=== PATIENT | male | born 1990 | race Caucasian/White ===

== ENCOUNTER 2016-09-08 15:52 | Emergency (ER) | payer MEDICAID ==
[~2016-09-08] VITALS: Ht 175.3 cm; Wt 67.0 kg
[~2016-09-08 15:52] MED LIST: CREON24 PO; ESSE250T PO; GABA300C5 PO; PROT40TA PO; VITA100064 PO; ZANT150T2 PO
[2016-09-08 15:57] VITALS: BP 142/106; PULSE 79; RESP 18; TEMP 97.7; O2SAT 98
--- NOTE | 2016-09-08 16:26 | PD ---
HPI Chief Complaint: GI Complaint Time Seen by Provider: 16:17 Travel History International Travel<30 days: No Contact w/Intl Traveler<30days: No Traveled to known affect area: No History of Present Illness HPI This patient complains of nausea and vomiting. Duration 30 minutes. Severity is moderate. This is a flare of her chronic problem. He was fairly frequent visitor for nausea and vomiting spells. He's had extensive GI workup as noted in my last visit with him which was last month. He denies fever. No diarrhea. No alleviating factors. PFSH Past Medical History Arthritis: No Autoimmune Disease: No Anxiety: No Depression: No Cancer: No Cardiovascular Problems: No Cerebrovascular Accident: No Cystic Fibrosis: Yes Diminished Hearing: No Endocrine: No Gastrointestinal Disorders: Yes (nausea) GERD: No Genitourinary: No Hiatal Hernia: No Immune Disorder: No Musculoskeletal: No Neurologic: No Psychiatric: No Reproductive: No Respiratory: Yes (cystic fibrosis at 3 months old) Immunizations Current: Yes Migraines: No Seizures: No Ulcer: No Tetanus Vaccination: < 5 Years Influenza Vaccination: Yes Past Surgical History AICD: No Arteriovenous Shunt: No Insulin Pump: No Joint Replacement: No Other Surgery: Yes (Sinus) Social History Alcohol Use: No Tobacco Use: No Substance Use: No Allergies-Medications (Allergen,Severity, Reaction): Coded Allergies: No Known Allergies (Unverified , 09/08/16) Reported Meds & Prescriptions Reported Meds & Active Scripts Active Zantac (Ranitidine HCl) 150 Mg Tab 150 Mg PO BID Reported Protonix (Pantoprazole Sodium) 40 Mg Tab 40 Mg PO DAILY Magnesium 250 Mg Tab 1 Tab PO DAILY Gabapentin 300 Mg Cap 300 Mg PO BID Vitamin D (Cholecalciferol) 1,000 Unit Tab 1,000 Units PO DAILY Review of Systems General / Constitutional: No: Fever Eyes: No: Visual changes HENT: No: Headaches Cardiovascular: No: Chest Pain or Discomfort Respiratory: No: Shortness of Breath Gastrointestinal: Positive: Nausea, Vomiting, Abdominal Pain Genitourinary: No: Dysuria Musculoskeletal: No: Pain Skin: No Rash Neurologic: No: Weakness Psychiatric: No: Depression Endocrine: No: Polydipsia Hematologic/Lymphatic: No: Easy Bruising Physical Exam Narrative GENERAL: Well-nourished, well-developed patient with nausea and vomiting SKIN: Warm and dry. HEAD: Atraumatic. Normocephalic. EYES: Pupils equal and round. No scleral icterus. No injection or drainage. ENT: No nasal bleeding or discharge. Mucous membranes pink and moist. NECK: Trachea midline. No JVD. CARDIOVASCULAR: Regular rate and rhythm. No murmur appreciated. RESPIRATORY: No accessory muscle use. Clear to auscultation. Breath sounds equal bilaterally. GASTROINTESTINAL: Abdomen soft, non-tender, nondistended. Hepatic and splenic margins not palpable. MUSCULOSKELETAL: No obvious deformities. No clubbing. No cyanosis. No edema. NEUROLOGICAL: Awake and alert. No obvious cranial nerve deficits. Motor grossly within normal limits. Normal speech. PSYCHIATRIC: Appropriate mood and affect; insight and judgment normal. Data Data Last Documented VS Vital Signs Date Time Temp Pulse Resp B/P Pulse Ox O2 Delivery O2 Flow Rate FiO2 09/08/16 18:00 75 18 121/68 99 Room Air 09/08/16 15:57 97.7 Orders Complete Blood Count With Diff (09/08/16 16:22) Comprehensive Metabolic Panel (09/08/16 16:22) Lipase (09/08/16 16:22) Iv Access Insert/Monitor (09/08/16 16:22) NPO (09/08/16 16:22) Ondansetron Inj (Zofran Inj) (09/08/16 16:30) Sodium Chloride 0.9% Flush (Ns Flush) (09/08/16 16:30) Sodium Chlor 0.9% 1000 Ml Inj (Ns 1000 M (09/08/16 16:30) Promethazine Inj (Phenergan Inj) (09/08/16 16:30) Ondansetron Inj (Zofran Inj) (09/08/16 17:15) Lorazepam Inj (Ativan Inj) (09/08/16 17:15) Labs Laboratory Tests Test 09/08/16 16:15 White Blood Count 10.0 TH/MM3 Red Blood Count 5.22 MIL/MM3 Hemoglobin 15.1 GM/DL Hematocrit 45.2 % Mean Corpuscular Volume 86.6 FL Mean Corpuscular Hemoglobin 28.9 PG Mean Corpuscular Hemoglobin 33.4 % Concent Red Cell Distribution Width 12.3 % Platelet Count 333 TH/MM3 Mean Platelet Volume 8.3 FL Neutrophils (%) (Auto) 55.9 % Lymphocytes (%) (Auto) 30.7 % Monocytes (%) (Auto) 6.4 % Eosinophils (%) (Auto) 5.3 % Basophils (%) (Auto) 1.7 % Neutrophils # (Auto) 5.6 TH/MM3 Lymphocytes # (Auto) 3.1 TH/MM3 Monocytes # (Auto) 0.6 TH/MM3 Eosinophils # (Auto) 0.5 TH/MM3 Basophils # (Auto) 0.2 TH/MM3 CBC Comment DIFF FINAL Differential Comment Sodium Level 141 MEQ/L Potassium Level 4.1 MEQ/L Chloride Level 105 MEQ/L Carbon Dioxide Level 28.3 MEQ/L Anion Gap 8 MEQ/L Blood Urea Nitrogen 10 MG/DL Creatinine 1.10 MG/DL Estimat Glomerular Filtration 81 ML/MIN Rate Random Glucose 91 MG/DL Calcium Level 9.0 MG/DL Total Bilirubin 0.2 MG/DL Aspartate Amino Transf 25 U/L (AST/SGOT) Alanine Aminotransferase 28 U/L (ALT/SGPT) Alkaline Phosphatase 76 U/L Total Protein 8.7 GM/DL Albumin 4.4 GM/DL Lipase 39 U/L [facility] Medical Decision Making Medical Screen Exam Complete: Yes Emergency Medical Condition: Yes Medical Record Reviewed: Yes Differential Diagnosis Cyclical vomiting, narcotic withdrawal, ileus Narrative Course I have reviewed the patient's electronic medical record. Reviewed my visit with him 07/27/2016. Had a CT couple weeks before that which was normal IV placed I gave him IV Zofran and IM Phenergan and 1 L normal saline IV CBC is normal Metabolic profile is normal Lipase is normal LFTs are normal Patient's abdomen is soft and benign and nontender. Patient reported still feeling nauseous. I gave him a second dose of Zofran and a dose of 1 mg IV Ativan. On reassessment I think he is improved. He is not having any vomiting since he has been here. He has Zofran at home. He says Phenergan doesn't help. He wants to try some Reglan and I have written a prescription for that He should follow-up with his GI physician Diagnosis Primary Impression: Nausea and vomiting Qualified Code: G43.A0 - Non-intractable cyclical vomiting with nausea Additional Instructions: The patient was advised to follow up with their physician and return if they worsen. I have recommended clear liquids for 24 hours, then gradually advance as tolerated. The patient was warned about potential sedation for the medications they will receive on prescription. Med/Other Pt SpecificInfo: Prescription(s) given Scripts Metoclopramide (Reglan)10 Mg Tab10 Mg PO TIDAC #30 TAB Ref 0 Prov:Bradley Mancuso MD 09/08/16 Disposition: 01 DISCHARGE HOME Condition: Stable Bradley Mancuso MD Sep 08, 2016 16:26
[2016-09-08] MEDS ORDERED: SODIUM CHLOR 0.9% 1000 ML INJ 1,000 ML IV ONE (16:30)
[2016-09-08] MEDS ORDERED: SODIUM CHLORIDE 0.9% FLUSH 5 ML FLUSH IVF PRN (16:30)
[2016-09-08] MEDS ORDERED: PROMETHAZINE INJ 25 MG/ML VIAL IM ONE (16:30)
[2016-09-08] MEDS ORDERED: ONDANSETRON HCL 4 MG/2 ML VIAL IVP ONE ×2 (16:30→17:15)
[2016-09-08 16:38] LABS: AUTOMATED NEUTROPHIL # 5.6 TH/MM3 (1.8-7.7); BASOPHIL # 0.2 TH/MM3 (0-0.2); BASOPHIL % 1.7 % (0.0-2.0); EOSINOPHIL # 0.5 TH/MM3 (0-0.4); EOSINOPHIL % 5.3 % (0.0-4.0); HEMATOCRIT 45.2 % (39.0-51.0); HEMO FLAGS DIFF FINAL; LYMPH % 30.7 % (9.0-44.0); LYMPHOCYTE # 3.1 TH/MM3 (1.0-4.8); MEAN CELL VOLUME 86.6 FL (80.0-100.0); MEAN CORPUSCULAR HEMOGLOBIN 28.9 PG (27.0-34.0); MEAN CORPUSCULAR HGB CONC 33.4 % (32.0-36.0); MONO % 6.4 % (0.0-8.0); NEUT % 55.9 % (16.0-70.0); PLATELET COUNT 333 TH/MM3 (150-450); RED BLOOD COUNT 5.22 MIL/MM3 (4.50-5.90); RED CELL DISTRIBUTION WIDTH 12.3 % (11.6-17.2)
[2016-09-08 16:46] LABS: CHLORIDE 105 MEQ/L (98-107); POTASSIUM 4.1 MEQ/L (3.5-5.1); SODIUM (NA) 141 MEQ/L (136-145)
[2016-09-08 16:50] LABS: ANION GAP 8 MEQ/L (5-15); BICARBONATE 28.3 MEQ/L (21.0-32.0); BLOOD UREA NITROGEN 10 MG/DL (7-18)
[2016-09-08 16:53] LABS: ALT (GPT) 28 U/L (12-78); AST (GOT) 25 U/L (15-37); GLOMERULAR FILTRATION RATE 81 ML/MIN (>89)
[2016-09-08 16:55] LABS: TOTAL BILIRUBIN ADULT 0.2 MG/DL (0.2-1.0)
[2016-09-08 16:56] LABS: ALKALINE PHOSPHATASE 76 U/L (45-117)
[2016-09-08] MEDS ORDERED: LORazepam 2 MG/ML VIAL IV PUSH ONE (17:15)
[2016-09-08 18:00] VITALS: BP 121/68; PULSE 75; RESP 18; O2SAT 99
[2016-09-08] MEDS ORDERED: REGL10TA5 PO (18:05)
== END 2016-09-08 18:30 | disposition home or self-care (01) ==
LOC: PHED 15:52
DX: G43.A0 Cyclical vomiting, in migraine, not intractable (principal)
CPT/HCPCS: 80053; 83690; 85025; 96361; 96372; 96374; 96375; 96376; 99284; J2060; J2405; J2550; J7030

== ENCOUNTER 2017-03-26 19:26 | Emergency (ER) | payer MEDICAID ==
[~2017-03-26 19:26] MED LIST changes: +ALBU.5I NEB; +AQUACHW; -CREON24 PO; +DIAZ2TAB PO; +FAMO20TA2 PO; +FLUT50SP EACH NARE; +GABA100C4 PO; +LANS30CA PO; +MAGN400T2 PO; +METO5TAB PO; +ONDA1TAB17 PO; +OXYC-392 PO; +REGL10TA5 PO; +VENTAER INH; +ZENP1000 PO
[2017-03-26 19:32] VITALS: BP 135/80; PULSE 90; RESP 22; TEMP 97.7; O2SAT 100
--- NOTE | 2017-03-26 20:43 | PD ---
HPI Chief Complaint: GI Complaint Time Seen by Provider: 20:31 Travel History International Travel<30 days: No Contact w/Intl Traveler<30days: No Traveled to known affect area: No History of Present Illness HPI The patient is a 26-year-old male that has a history of pancreatitis and cystic fibrosis who comes in approximately on a monthly basis for abdominal pain, nausea and vomiting. He states he has nausea and vomiting without diarrhea and he is unable to eat or drink anything today. He complains of a midline epigastric pain and slightly to the left of midline epigastrium of 8/10. He states he wants Dilaudid. He states not to even bother with morphine, he needs Dilaudid. He is followed by a cystic fibrosis group in [place]. 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 He does not have a local physician. He denies any fever. He states he is vomiting up blood. He states that most of the vomitus is blood. There is no associated diarrhea. PFSH Past Medical History Asthma: No Anxiety: No Depression: No Cancer: No Cardiovascular Problems: No COPD: No Cystic Fibrosis: Yes Diabetes: No Diminished Hearing: No Endocrine: No Gastrointestinal Disorders: Yes GERD: Yes Genitourinary: No Immune Disorder: No Implanted Vascular Access Dvce: No Musculoskeletal: No Neurologic: No Psychiatric: No Reproductive: Yes (yes due to Cystic Fibrosis) Respiratory: Yes (Cystic fibrosis) Pancreatitis: Yes Seizures: No Sleep Apnea: No Ulcer: No Past Surgical History Abdominal Surgery: No Cardiac Surgery: No Ear Surgery: No Endocrine Surgery: No Eye Surgery: No Genitourinary Surgery: No Gynecologic Surgery: No Neurologic Surgery: Yes (CILIAC NERVE BLOCK) Oral Surgery: No Thoracic Surgery: No Other Surgery: No Social History Alcohol Use: No Tobacco Use: No Substance Use: No Allergies-Medications (Allergen,Severity, Reaction): Coded Allergies: No Known Allergies (Unverified , 03/26/17) Reported Meds & Prescriptions Reported Meds & Active Scripts Active Zofran Odt (Ondansetron Odt) 8 Mg Tab 8 Mg SL Q8HR Reported Lansoprazole 30 Mg Capdr 30 Mg PO DAILY Ondansetron (Ondansetron HCl) 8 Mg Tab 8 Mg PO TID PRN Metoclopramide (Metoclopramide HCl) 5 Mg Tab 5 Mg PO QID Albuterol Neb (Albuterol Sulfate) 2.5 Mg/0.5 Ml Neb 2.5 Mg NEB Q6HR NEB PRN Note: The Albuterol Sulfate Inhalation Solution is concentrated and must be diluted. Read complete instructions carefully before using. Oxycodone (Oxycodone HCl) 5 Mg Tab 5 Mg PO Q6H PRN Aquadeks (Multiple Vitamins W/ Minerals) 1 Chw Chw Fluticasone Nasal Adrian 50 Mcg/Act Naspr 50 Mcg EACH NARE BID 50 mcg/spray Famotidine 20 Mg Tab 20 Mg PO BID Magnesium Oxide 400 Mg Tab 400 Mg PO DAILY Diazepam 2 Mg Tab 2 Mg PO BID PRN Gabapentin 100 Mg Cap 300 Mg PO BID Vitamin D3 (Cholecalciferol) 1,000 Unit Tab 1,000 Units PO DAILY Ventolin Hfa 18 GM Inh (Albuterol Sulfate) 90 Mcg/Act Aer 1 Puff INH Q4H PRN Zenpep (Pancrelipase) 10,000-34,000-55,000 Units Cap 1 Cap PO TIDPC Review of Systems Except as stated in HPI: all other systems reviewed are Neg Physical Exam Narrative GENERAL: The patient is alert, moderately dehydrated, oriented 3 in moderate apparent distress with his nausea and midline by gastric pain. His vital signs are normal. SKIN: Focused skin assessment warm/dry. HEAD: Atraumatic. Normocephalic. EYES: Pupils equal and round. No scleral icterus. No injection or drainage. ENT: No nasal bleeding or discharge. Mucous membranes pink and moist. NECK: Trachea midline. No JVD. CARDIOVASCULAR: Regular rate and rhythm. No murmur appreciated. RESPIRATORY: No accessory muscle use. Clear to auscultation. Breath sounds equal bilaterally. GASTROINTESTINAL: Abdomen soft, non-tender, nondistended. Hepatic and splenic margins not palpable. MUSCULOSKELETAL: No obvious deformities. No clubbing. No cyanosis. No edema. NEUROLOGICAL: Awake and alert. No obvious cranial nerve deficits. Motor grossly within normal limits. Normal speech. PSYCHIATRIC: Appropriate mood and affect; insight and judgment normal. Data Data Last Documented VS Vital Signs Date Time Temp Pulse Resp B/P Pulse Ox O2 Delivery O2 Flow Rate FiO2 03/26/17 21:36 87 18 116/87 98 Room Air 03/26/17 19:32 97.7 Orders Complete Blood Count With Diff (03/26/17 20:39) Comprehensive Metabolic Panel (03/26/17 20:39) Lipase (03/26/17 20:39) Urinalysis - C+S If Indicated (03/26/17 20:39) Ct Abd/Pel W Iv Contrast(Rout) (03/26/17 20:39) Iv Access Insert/Monitor (03/26/17 20:39) Ecg Monitoring (03/26/17 20:39) Oximetry (03/26/17 20:39) Sodium Chloride 0.9% Flush (Ns Flush) (03/26/17 20:45) Ondansetron Inj (Zofran Inj) (03/26/17 20:45) Sodium Chlor 0.9% 1000 Ml Inj (Ns 1000 M (03/26/17 20:45) Hydromorphone Pf Inj (Dilaudid Pf Inj) (03/26/17 20:45) Pantoprazole Inj (Protonix Inj) (03/26/17 20:45) Famotidine Inj (Pepcid Inj) (03/26/17 20:45) Iohexol 350 Inj (Omnipaque 350 Inj) (03/26/17 21:27) Ondansetron Inj (Zofran Inj) (03/26/17 22:00) Labs Laboratory Tests Test 03/26/17 21:00 White Blood Count 13.1 TH/MM3 Red Blood Count 4.77 MIL/MM3 Hemoglobin 14.1 GM/DL Hematocrit 41.4 % Mean Corpuscular Volume 86.8 FL Mean Corpuscular Hemoglobin 29.6 PG Mean Corpuscular Hemoglobin 34.1 % Concent Red Cell Distribution Width 11.8 % Platelet Count 256 TH/MM3 Mean Platelet Volume 8.1 FL Neutrophils (%) (Auto) 91.0 % Lymphocytes (%) (Auto) 5.8 % Monocytes (%) (Auto) 2.5 % Eosinophils (%) (Auto) 0.1 % Basophils (%) (Auto) 0.6 % Neutrophils # (Auto) 11.9 TH/MM3 Lymphocytes # (Auto) 0.8 TH/MM3 Monocytes # (Auto) 0.3 TH/MM3 Eosinophils # (Auto) 0.0 TH/MM3 Basophils # (Auto) 0.1 TH/MM3 CBC Comment DIFF FINAL Differential Comment Sodium Level 140 MEQ/L Potassium Level 4.1 MEQ/L Chloride Level 105 MEQ/L Carbon Dioxide Level 25.4 MEQ/L Anion Gap 10 MEQ/L Blood Urea Nitrogen 14 MG/DL Creatinine 0.89 MG/DL Estimat Glomerular Filtration 103 ML/MIN Rate Random Glucose 160 MG/DL Calcium Level 9.1 MG/DL Total Bilirubin 0.3 MG/DL Aspartate Amino Transf 16 U/L (AST/SGOT) Alanine Aminotransferase 23 U/L (ALT/SGPT) Alkaline Phosphatase 72 U/L Total Protein 8.2 GM/DL Albumin 4.5 GM/DL Lipase 36 U/L [facility] Medical Decision Making Medical Screen Exam Complete: Yes Emergency Medical Condition: Yes Medical Record Reviewed: Yes Interpretation(s) The complete metabolic profile shows a glucose of 160 but is otherwise normal. The lipase is normal. The CBC shows a white count of 13,100 with 91% neutrophils but is otherwise normal. The CT of the abdomen/pelvis with IV contrast shows diffuse fatty changes of the pancreas and mild diffuse fatty infiltration of the liver and status post cholecystectomy. No acute findings are noted. Differential Diagnosis Pancreatitis, dehydration, electrolyte disorder, hypo-/hyperglycemia, renal insufficiency, gastritis, intractable nausea/vomiting, intractable abdominal pain Narrative Course The patient vomited several times here in the emergency department but there was no blood in the vomitus. It is now 10:32 PM and the patient is successfully drinking Gatorade. He was offered admission but states he wants to try it at home with the 8 mg Zofran ODT. He will follow-up with his cystic fibrosis group next week. Diagnosis Primary Impression: Gastritis Additional Impressions: Cystic fibrosis Dehydration, mild Additional Instructions: You came in appearing dehydrated. You may need to take the Zofran regularly, 1 every 8 hours to prevent nausea and vomiting. Don't wait till the nausea starts. Follow-up next week with your cystic fibrosis group. Med/Other Pt SpecificInfo: Prescription(s) given Scripts Ondansetron Odt (Zofran Odt)8 Mg Tab8 Mg SL Q8HR #30 TAB Ref 0 Prov:Felix Almanzar MD 03/26/17 Disposition: 01 DISCHARGE HOME Condition: Stable Felix Almanzar MD Mar 26, 2017 20:43
[2017-03-26] MEDS ORDERED: HYDROmorphone HCL PF 2 MG/ML VIAL IVS ONE (20:45)
[2017-03-26] MEDS ORDERED: FAMOTIDINE 20 MG/2 ML VIAL IV PUSH ONE (20:45)
[2017-03-26] MEDS ORDERED: SODIUM CHLORIDE 0.9% FLUSH 10 ML FLUSH IV FLUSH PRN (20:45)
[2017-03-26] MEDS ORDERED: ONDANSETRON HCL 4 MG/2 ML VIAL IV ONE ×2 (20:45→22:00)
[2017-03-26] MEDS ORDERED: PANTOPRAZOLE SODIUM 40 MG VIAL IVP ONE (20:45)
[2017-03-26 20:46] VITALS: O2SAT 99
[2017-03-26] MEDS: SODIUM CHLOR 0.9% 1000 ML INJ 1,000 ML IV SCH ×2 (21:10→21:15)
[2017-03-26 21:27] LABS: AUTOMATED NEUTROPHIL # 11.9 TH/MM3 (1.8-7.7); BASOPHIL # 0.1 TH/MM3 (0-0.2); BASOPHIL % 0.6 % (0.0-2.0); EOSINOPHIL % 0.1 % (0.0-4.0); HEMATOCRIT 41.4 % (39.0-51.0); HEMO FLAGS DIFF FINAL; LYMPH % 5.8 % (9.0-44.0); LYMPHOCYTE # 0.8 TH/MM3 (1.0-4.8); MEAN CELL VOLUME 86.8 FL (80.0-100.0); MEAN CORPUSCULAR HEMOGLOBIN 29.6 PG (27.0-34.0); MEAN CORPUSCULAR HGB CONC 34.1 % (32.0-36.0); MONO % 2.5 % (0.0-8.0); PLATELET COUNT 256 TH/MM3 (150-450); RED BLOOD COUNT 4.77 MIL/MM3 (4.50-5.90); RED CELL DISTRIBUTION WIDTH 11.8 % (11.6-17.2); WHITE BLOOD COUNT 13.1 TH/MM3 (4.0-11.0)
[2017-03-26] MEDS ORDERED: IOHEXOL 350 MG/ML 10 ML VIAL (for RAD DIAG) IV ONE (21:27)
[2017-03-26 21:34] LABS: CHLORIDE 105 MEQ/L (98-107); POTASSIUM 4.1 MEQ/L (3.5-5.1); SODIUM (NA) 140 MEQ/L (136-145)
[2017-03-26 21:36] VITALS: BP 116/87; PULSE 87; RESP 18; O2SAT 98
[2017-03-26 21:41] LABS: ANION GAP 10 MEQ/L (5-15); BICARBONATE 25.4 MEQ/L (21.0-32.0); BLOOD UREA NITROGEN 14 MG/DL (7-18)
[2017-03-26 21:43] LABS: ALT (GPT) 23 U/L (12-78); AST (GOT) 16 U/L (15-37); GLOMERULAR FILTRATION RATE 103 ML/MIN (>89)
--- NOTE | 2017-03-26 21:43 | RADRPT ---
EXAM DATE/TIME: 03/26/2017 21:24 [facility] COMPARISON: CT ABDOMEN & PELVIS W CONTRAST, January 17, 2017, 9:57. INDICATIONS : Abdominal pain. history of cystic fibrosis and pancreatitis. Nausea , vomiting with hemoptysis since 3 a.m. IV CONTRAST: 96 cc Omnipaque 350 (iohexol) IV ORAL CONTRAST: No oral contrast ingested. RADIATION DOSE: 4.88 CTDIvol (mGy) MEDICAL HISTORY : Pancreatitis. Gastroesophageal reflux disease. cystic fibrosis SURGICAL HISTORY : Cholecystectomy. Ciliac nerve block ENCOUNTER: Initial ACUITY: 1 day PAIN SCALE: 10/10 LOCATION: medial abdomen TECHNIQUE: Volumetric scanning of the abdomen and pelvis was performed. Using automated exposure control and ad justment of the mA and/or kV according to patient size, radiation dose was kept as low as reasonably achievable to obtain optimal diagnostic quality images. DICOM format image data is available electro nically for review and comparison. FINDINGS: LOWER LUNGS: Atelectasis in the lingula. LIVER: Mild diffuse fatty infiltration of the liver. No focal mass. Cholecystectomy clips. SPLEEN: Normal size without lesion. PANCREAS: Diffuse fatty change of the pancreas. No inflammatory changes seen. KIDNEYS: Normal in size and shape. There is no mass, stone or hydronephrosis. ADRENAL GLANDS: Within normal limits. VASCULAR: There is no aortic aneurysm. BOWEL/MESENTERY: No evidence of bowel dilatation. No free air or free fluid. Appendix within normal limits. ABDOMINAL WALL: Within normal limits. RETROPERITONEUM: There is no lymphadenopathy. BLADDER: No wall thickening or mass. REPRODUCTIVE: Within normal limits. INGUINAL: There is no lymphadenopathy or hernia. MUSCULOSKELETAL: Within normal limits for patient age. CONCLUSION: Diffuse fatty change of the pancreas. Mild diffuse fatty infiltration of the liver. Status post elia cystectomy. Blaine Collier MD on March 26, 2017 at 21:38 Board Certified Radiologist. This report was verified electronically.
[2017-03-26 21:45] LABS: TOTAL BILIRUBIN ADULT 0.3 MG/DL (0.2-1.0)
[2017-03-26 21:46] LABS: ALKALINE PHOSPHATASE 72 U/L (45-117)
[2017-03-26] MEDS ORDERED: ZOFR8TAB4 SL (22:25)
[2017-03-26 22:52] VITALS: BP 110/65
== END 2017-03-26 22:57 | disposition home or self-care (01) ==
LOC: PHED 19:26 → MERGE 19:26 → PHED 22:57
DX: K29.70 Gastritis, unspecified, without bleeding (principal); E84.9 Cystic fibrosis, unspecified; E86.0 Dehydration
CPT/HCPCS: 74177; 80053; 83690; 85025; 96374; 96375; 96376; 99285; C9113; J1170; J2405; J7030; Q9967

== ENCOUNTER 2017-05-17 21:54 | Emergency (ER) | payer MEDICAID ==
[~2017-05-17] VITALS: Ht 175.3 cm; Wt 64.0 kg
[~2017-05-17 21:54] MED LIST changes: +ZOFR8TAB4 SL
[2017-05-17 22:22] VITALS: BP 142/85; PULSE 105; RESP 18; TEMP 98.5; O2SAT 98
[2017-05-18] MEDS ORDERED: CREON24 PO (01:16)
[2017-05-18] MEDS ORDERED: SODIUM CHLOR 0.9% 1000 ML INJ 1,000 ML IV SCH (01:20)
--- NOTE | 2017-05-18 01:27 | PD ---
HPI Chief Complaint: Abdominal Pain Time Seen by Provider: 01:20 Travel History International Travel<30 days: No Contact w/Intl Traveler<30days: No Traveled to known affect area: No History of Present Illness HPI 26-year-old male presents to the emergency department for complaint of 24 hours of nausea vomiting abdominal pain with history of cystic fibrosis and pancreatitis. Patient is not able to take his medications due to multiple episodes of vomiting. Patient denies history of bowel obstruction the past. Patient has had no fever or chills. Patient denies hematemesis coffee-ground emesis melena hematochezia. Patient rates pain as 8/10 in intensity. Patient states that he has episodes like this he typically has to receive Zofran and Dilaudid. Patient is able to identify exacerbating or alleviating factors. PFSH Past Medical History Arthritis: No Asthma: No Autoimmune Disease: No Anxiety: No Depression: No Cancer: No Cardiovascular Problems: No COPD: No Cerebrovascular Accident: No Cystic Fibrosis: Yes Diabetes: Yes Patient Takes Glucophage: No Diminished Hearing: No Endocrine: No Gastrointestinal Disorders: Yes GERD: Yes Genitourinary: No Hiatal Hernia: No Immune Disorder: No Implanted Vascular Access Dvce: No Musculoskeletal: No Neurologic: No Psychiatric: No Reproductive: Yes (yes due to Cystic Fibrosis) Respiratory: Yes (Cystic Fibrosis) Immunizations Current: Yes Migraines: No Pancreatitis: Yes Seizures: No Sleep Apnea: No Ulcer: No Influenza Vaccination: Yes Past Surgical History Abdominal Surgery: No AICD: No Arteriovenous Shunt: No Cardiac Surgery: No Cholecystectomy: Yes Ear Surgery: No Endocrine Surgery: No Eye Surgery: No Genitourinary Surgery: No Gynecologic Surgery: No Insulin Pump: No Joint Replacement: No Neurologic Surgery: Yes (CILIAC NERVE BLOCK) Oral Surgery: No Thoracic Surgery: No Other Surgery: No Social History Alcohol Use: No Tobacco Use: No Substance Use: No Allergies-Medications (Allergen,Severity, Reaction): Coded Allergies: No Known Allergies (Unverified , 05/17/17) Reported Meds & Prescriptions Reported Meds & Active Scripts Active Zofran Odt (Ondansetron Odt) 8 Mg Tab 8 Mg SL Q8HR Zantac (Ranitidine HCl) 150 Mg Tab 150 Mg PO BID Reported Fentanyl Patch 72 HR (Fentanyl) 12 Mcg/Hr Patch 1 Patch T-DERMAL Q72H Remove old patch when new one placed. Creon (Amylase/Lipase/Protease) 24,000-76,000-120,000 Units Cap 1 Cap PO TIDPC Lansoprazole 30 Mg Capdr 30 Mg PO DAILY Albuterol Neb (Albuterol Sulfate) 2.5 Mg/0.5 Ml Neb 2.5 Mg NEB Q6HR NEB PRN Note: The Albuterol Sulfate Inhalation Solution is concentrated and must be diluted. Read complete instructions carefully before using. Oxycodone (Oxycodone HCl) 5 Mg Tab 5 Mg PO Q6H PRN Aquadeks (Multiple Vitamins W/ Minerals) 1 Chw Chw Fluticasone Nasal [place] 50 Mcg/Act Naspr 50 Mcg EACH NARE BID 50 mcg/spray Famotidine 20 Mg Tab 20 Mg PO BID Diazepam 2 Mg Tab 2 Mg PO BID PRN Gabapentin 100 Mg Cap 300 Mg PO BID Ventolin Hfa 18 GM Inh (Albuterol Sulfate) 90 Mcg/Act Aer 1 Puff INH Q4H PRN Protonix (Pantoprazole Sodium) 40 Mg Tab 40 Mg PO DAILY Magnesium 250 Mg Tab 1 Tab PO DAILY Gabapentin 300 Mg Cap 300 Mg PO TID NEB Vitamin D3 (Cholecalciferol) 1,000 Unit Tab 1,000 Units PO DAILY Review of Systems Except as stated in HPI: all other systems reviewed are Neg General / Constitutional: No: Fever, Chills HENT: No: Congestion Cardiovascular: No: Chest Pain or Discomfort Respiratory: No: Shortness of Breath Gastrointestinal: Positive: Nausea, Vomiting, Abdominal Pain (with vomiting) Genitourinary: Positive: Decreased Urinary Output, No: Dysuria Musculoskeletal: No: Myalgias, Arthralgias Skin: No Rash Neurologic: No: Weakness Psychiatric: Positive: Anxiety Hematologic/Lymphatic: No: Lymph Node Enlargement Physical Exam Narrative GENERAL: Well-developed well-nourished male in no distress no respiratory distress SKIN: Warm and dry. HEAD: Normocephalic. EYES: No scleral icterus. No injection or drainage. NECK: Supple, trachea midline. No JVD or lymphadenopathy. CARDIOVASCULAR: Regular rate and rhythm without murmurs, gallops, or rubs. RESPIRATORY: Breath sounds equal bilaterally. No accessory muscle use. GASTROINTESTINAL: Abdomen soft, tender without guarding or rebound, nondistended. MUSCULOSKELETAL: No cyanosis, or edema. BACK: Nontender without obvious deformity. No CVA tenderness. Data Data Last Documented VS Vital Signs Date Time Temp Pulse Resp B/P (MAP) Pulse Ox O2 Delivery O2 Flow Rate FiO2 05/18/17 03:59 98.5 86 16 119/59 (79) 95 Room Air Orders Orders Complete Blood Count With Diff (05/18/17 01:20) Comprehensive Metabolic Panel (05/18/17 01:20) Lipase (05/18/17 01:20) Lactic Acid (05/18/17 01:20) Prothrombin Time / Inr (Pt) (05/18/17 01:20) Act Partial Throm Time (Ptt) (05/18/17 01:20) Urinalysis - C+S If Indicated (05/18/17 01:20) Iv Access Insert/Monitor (05/18/17 01:20) Ecg Monitoring (05/18/17 01:20) Oximetry (05/18/17 01:20) Ondansetron Inj (Zofran Inj) (05/18/17 01:30) Sodium Chlor 0.9% 1000 Ml Inj (Ns 1000 M (05/18/17 01:20) Sodium Chloride 0.9% Flush (Ns Flush) (05/18/17 01:30) Electrocardiogram (05/18/17 01:20) Chest, Single Ap (05/18/17 01:20) Hydromorphone Pf Inj (Dilaudid Pf Inj) (05/18/17 01:30) Sodium Chlor 0.9% 1000 Ml Inj (Ns 1000 M (05/18/17 01:30) Magnesium (Mg) (05/18/17 01:20) Sodium Chlorid 0.9% 500 Ml Inj (Ns 500 M (05/18/17 02:15) Ondansetron Inj (Zofran Inj) (05/18/17 02:15) Hydromorphone Pf Inj (Dilaudid Pf Inj) (05/18/17 02:30) Sucralfate Liq (Carafate Liq) (05/18/17 02:30) Abdomen, Flat & Upright (05/18/17 ) Lactic Acid (05/18/17 04:00) Labs Laboratory Tests Test 05/18/17 01:18 05/18/17 01:54 05/18/17 02:55 05/18/17 03:55 White Blood Count 16.9 TH/MM3 Red Blood Count 5.14 MIL/MM3 Hemoglobin 14.9 GM/DL Hematocrit 43.7 % Mean Corpuscular Volume 85.1 FL Mean Corpuscular Hemoglobin 29.1 PG Mean Corpuscular Hemoglobin Concent 34.2 % Red Cell Distribution Width 12.3 % Platelet Count 325 TH/MM3 Mean Platelet Volume 7.7 FL Neutrophils (%) (Auto) 91.7 % Lymphocytes (%) (Auto) 6.1 % Monocytes (%) (Auto) 0.8 % Eosinophils (%) (Auto) 0.1 % Basophils (%) (Auto) 1.3 % Neutrophils # (Auto) 15.6 TH/MM3 Lymphocytes # (Auto) 1.0 TH/MM3 Monocytes # (Auto) 0.1 TH/MM3 Eosinophils # (Auto) 0.0 TH/MM3 Basophils # (Auto) 0.2 TH/MM3 CBC Comment DIFF FINAL Differential Comment Prothrombin Time 10.7 SEC Prothromb Time International Ratio 1.0 RATIO Activated Partial Thromboplast Time 26.8 SEC Blood Urea Nitrogen 11 MG/DL Creatinine 0.86 MG/DL Random Glucose 120 MG/DL Total Protein 9.1 GM/DL Albumin 4.7 GM/DL Calcium Level 9.6 MG/DL Magnesium Level 2.2 MG/DL Alkaline Phosphatase 88 U/L Aspartate Amino Transf (AST/SGOT) 22 U/L Alanine Aminotransferase (ALT/SGPT) 31 U/L Total Bilirubin 0.2 MG/DL Sodium Level 134 MEQ/L Potassium Level 3.6 MEQ/L Chloride Level 98 MEQ/L Carbon Dioxide Level 26.1 MEQ/L Anion Gap 10 MEQ/L Estimat Glomerular Filtration Rate 107 ML/MIN Lipase 42 U/L Lactic Acid Level 2.6 mmol/L 1.7 mmol/L Urine Color YELLOW Urine Turbidity MOD Urine pH 5.5 Urine Specific [place] 1.022 Urine Protein NEG mg/dL Urine Glucose (UA) NEG mg/dL Urine Ketones NEG mg/dL Urine Occult Blood NEG Urine Nitrite NEG Urine Bilirubin NEG Urine Leukocyte Esterase NEG Urine Squamous Epithelial Cells 0-5 /hpf Urine Amorphous Sediment LARGE Urine Mucus MOD /lpf Microscopic Urinalysis Comment CULT NOT INDICATED MDM Medical Decision Making Medical Screen Exam Complete: Yes Emergency Medical Condition: Yes Medical Record Reviewed: Yes Interpretation(s) EKG: Normal sinus rhythm rate [address] elevation or injury pattern change noted CBC & BMP Diagram 05/18/17 01:18 Total Protein 9.1 H, Albumin 4.7, Calcium Level 9.6, Magnesium Level 2.2, Alkaline Phosphatase 88, Aspartate Amino Transf (AST/SGOT) 22, Alanine Aminotransferase (ALT/SGPT) 31, Total Bilirubin 0.2 Vital Signs Date Time Temp Pulse Resp B/P (MAP) Pulse Ox O2 Delivery O2 Flow Rate FiO2 05/18/17 03:59 98.5 86 16 119/59 (79) 95 Room Air 05/18/17 02:56 86 16 131/73 (92) 96 Room Air 05/17/17 22:22 98.5 105 18 142/85 (104) 98 lactic acid: 2.6, elevated; post hydration 1.7, wnl ua: wnl coags: wnl Differential Diagnosis Gastritis pancreatitis bowel obstruction narcotic/opiate withdrawal Narrative Course 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 At 4:30 AM repeat lactic acid is in normal range and patient is ambulatory to the bathroom smiling and indicating that he is markedly improved and ready to be discharged to home Patient presents with chronic recurrent pancreatitis gastritis with episodes of dehydration and vomiting and nausea that typically responds to fluid hydration anti-medic and narcotic pain medicine and appears to again have had an recurrent episode of same with marked improvement with fluid pain management and antiemetic therapy. Patient is stable for outpatient management and follow- up with his managing physician. Patient will be provided with prescription for Phenergan and Carafate. Diagnosis Primary Impression: Gastritis Additional Impressions: Nausea and vomiting Dehydration Referrals: Primary Care Physician call for appointment Patient Instructions: Narcotic given in the ED, General Instructions Additional Instructions: Increase fluid hydration Follow-up with your primary managing physician Continue current medications as presently prescribed May use Carafate as needed for gastritis/inflammation May use Phenergan as prescribed as needed for breakthrough nausea and/or vomiting Take acetaminophen as needed for fever 100.4F or greater Return to the emergency department for any concerns or change in condition Med/Other Pt SpecificInfo: Prescription(s) given Scripts Promethazine (Phenergan) 25 Mg Tablet 25 MG PO Q6H Y for NAUSEA OR VOMITING, #7 TAB 0 Refills Prov: Ivanna Lucas MD 05/18/17 Sucralfate Liq (Carafate Liq) 1 Gm/10 Ml Susp 1 GM PO QID for Duodenal ulcer for 7 Days, #1200 ML 0 Refills on empty stomach Prov: Ivanna Lucas MD 05/18/17 Disposition: 01 DISCHARGE HOME Condition: Stable Ivanna Lucas MD May 18, 2017 01:27
[2017-05-18] MEDS ORDERED: SODIUM CHLORIDE 0.9% FLUSH 10 ML FLUSH IV FLUSH PRN (01:30)
[2017-05-18] MEDS ORDERED: HYDROmorphone HCL PF 1 MG/ML VIAL IV PUSH ONE ×2 (01:30→02:30)
[2017-05-18] MEDS ORDERED: SODIUM CHLOR 0.9% 1000 ML INJ 1,000 ML IV ONE (01:30)
[2017-05-18] MEDS ORDERED: ONDANSETRON HCL 4 MG/2 ML VIAL IVP ONE (01:30)
[2017-05-18 01:43] LABS: AUTOMATED NEUTROPHIL # 15.6 TH/MM3 (1.8-7.7); BASOPHIL # 0.2 TH/MM3 (0-0.2); BASOPHIL % 1.3 % (0.0-2.0); EOSINOPHIL % 0.1 % (0.0-4.0); HEMATOCRIT 43.7 % (39.0-51.0); LYMPH % 6.1 % (9.0-44.0); MEAN CELL VOLUME 85.1 FL (80.0-100.0); MEAN CORPUSCULAR HEMOGLOBIN 29.1 PG (27.0-34.0); MEAN CORPUSCULAR HGB CONC 34.2 % (32.0-36.0); MONO % 0.8 % (0.0-8.0); NEUT % 91.7 % (16.0-70.0); PLATELET COUNT 325 TH/MM3 (150-450); RED BLOOD COUNT 5.14 MIL/MM3 (4.50-5.90); RED CELL DISTRIBUTION WIDTH 12.3 % (11.6-17.2); WHITE BLOOD COUNT 16.9 TH/MM3 (4.0-11.0)
[2017-05-18 01:44] LABS: HEMO FLAGS DIFF FINAL
--- NOTE | 2017-05-18 01:45 | RADRPT ---
EXAM DATE/TIME: 05/18/2017 01:23 [facility] COMPARISON: CHEST SINGLE AP, January 17, 2017, 8:58. INDICATIONS : Chest pain and nausea. MEDICAL HISTORY : Pancreatitis. Gastroesophageal reflux disease. cystic fibrosis SURGICAL HISTORY : Cholecystectomy. Ciliac nerve block ENCOUNTER: Initial ACUITY: 1 day PAIN SCORE: 6/10 LOCATION: Bilateral chest FINDINGS: No infiltrate, effusion or pneumothorax demonstrated. Slight upper lobe predominant bronchiectasis ca n be seen on both sides. Normal heart size, stable. CONCLUSION: No acute pneumonia or other acute cardiopulmonary disease demonstrated. Brendan Pradhan MD on May 18, 2017 at 1:42 Board Certified Radiologist. This report was verified electronically.
[2017-05-18 01:58] LABS: CHLORIDE 98 MEQ/L (98-107); POTASSIUM 3.6 MEQ/L (3.5-5.1); SODIUM (NA) 134 MEQ/L (136-145)
[2017-05-18 02:02] LABS: ANION GAP 10 MEQ/L (5-15); APTT (PATIENT) 26.8 SEC (24.3-30.1); BICARBONATE 26.1 MEQ/L (21.0-32.0); BLOOD UREA NITROGEN 11 MG/DL (7-18); MAGNESIUM 2.2 MG/DL (1.5-2.5); PROTHROMBIN TIME - PATIENT 10.7 SEC (9.8-11.6)
[2017-05-18 02:05] LABS: ALT (GPT) 31 U/L (12-78); AST (GOT) 22 U/L (15-37); GLOMERULAR FILTRATION RATE 107 ML/MIN (>89)
[2017-05-18 02:06] LABS: TOTAL BILIRUBIN ADULT 0.2 MG/DL (0.2-1.0)
[2017-05-18 02:08] LABS: ALKALINE PHOSPHATASE 88 U/L (45-117)
[2017-05-18] MEDS ORDERED: FENT12DI T-DERMAL (02:14)
[2017-05-18] MEDS ORDERED: SODIUM CHLORID 0.9% 500 ML INJ 500 ML IV ONE (02:15)
[2017-05-18] MEDS ORDERED: ONDANSETRON HCL 4 MG/2 ML VIAL IV PUSH ONE (02:15)
[2017-05-18] MEDS ORDERED: SUCRALFATE 1 GM/10 ML CUP PO ONE (02:30)
[2017-05-18 02:56] VITALS: BP 131/73; PULSE 86; RESP 16; O2SAT 96
--- NOTE | 2017-05-18 03:20 | RADRPT ---
EXAM DATE/TIME: 05/18/2017 02:37 [facility] COMPARISON: No previous studies available for comparison. INDICATIONS : Abdominal pain and nausea. MEDICAL HISTORY : Pancreatitis. Gastroesophageal reflux disease. cystic fibrosis. SURGICAL HISTORY : Cholecystectomy. Ciliac nerve block. ENCOUNTER: Initial ACUITY: 1 day PAIN SCORE: 6/10 LOCATION: Bilateral abdomen. FINDINGS: Colonic wall thickening suspected, most conspicuous in the splenic flexure region. Nonobstructive bow el gas pattern. No free air. CONCLUSION: Possible colitis. No obstruction. Brendan Pradhan MD on May 18, 2017 at 3:17 Board Certified Radiologist. This report was verified electronically.
[2017-05-18 03:21] LABS: BLOOD, URINE NEG (NEG); GLUCOSE,URINE NEG (NEG); KETONE, URINE NEG (NEG); NITRITE,URINE NEG (NEG); PH, URINE 5.5 (5.0-8.5)
[2017-05-18 03:44] LABS: URINE COLOR YELLOW (YELLW/STRAW)
[2017-05-18 03:45] LABS: MUCUS URINE MOD /lpf (OCC); SQUAMOUS EPITHELIAL CELL URINE 0-5 /hpf (0-5)
[2017-05-18 03:46] LABS: COMMENT (UR) CULT NOT INDICATED; CULTURE IF INDICATED CULT NOT INDICATED
[2017-05-18 03:59] VITALS: BP 119/59; PULSE 86; RESP 16; TEMP 98.5; O2SAT 95
[2017-05-18] MEDS ORDERED: CARA1SUS3 PO (04:38)
[2017-05-18] MEDS ORDERED: PROM25TA10 PO (04:38)
--- NOTE | 2017-05-18 10:04 | EKG ---
Date Performed: 05/18/2017 Time Performed: 01:49:41 PTAGE: 26 years EKG: Sinus rhythm NORMAL ECG NO PREVIOUS TRACING DOCTOR: Severino Gonzales Interpretating Date/Time 05/18/2017 10:03:27
== END 2017-05-18 04:50 | disposition home or self-care (01) ==
LOC: PHED 21:54
DX: K29.70 Gastritis, unspecified, without bleeding (principal); E86.0 Dehydration; E11.9 Type 2 diabetes mellitus without complications; E84.9 Cystic fibrosis, unspecified
CPT/HCPCS: 71010; 74020; 80053; 81001; 83605; 83690; 83735; 85025; 85610; 85730; 93005; 96361; 96374; 96375; 96376; 99285; J1170; J2405; J7030; J7040

== ENCOUNTER 2017-08-06 13:31 | Emergency (ER) | payer MEDICAID ==
[~2017-08-06] VITALS: Ht 152.4 cm; Wt 70.0 kg
[~2017-08-06 13:31] MED LIST changes: +CARA1SUS3 PO; +CREON24 PO; +FENT12DI T-DERMAL; -GABA100C4 PO; -MAGN400T2 PO; -METO5TAB PO; -ONDA1TAB17 PO; +PERC5TAB12 PO; +PROM25TA10 PO; -REGL10TA5 PO; -ZENP1000 PO; +ZOFR4TAB3 SL
[2017-08-06 13:40] VITALS: BP 142/89; PULSE 92; RESP 18; TEMP 97.8; O2SAT 96
[2017-08-06] MEDS ORDERED: SODIUM CHLOR 0.9% 1000 ML INJ 1,000 ML IV ONE (13:46)
[2017-08-06] MEDS ORDERED: PROCHLORPERAZINE INJ 10 MG/2 ML VIAL IV PUSH ONE (14:00)
[2017-08-06] MEDS ORDERED: diphenhydrAMINE HCL 50 MG/ML VIAL IV PUSH ONE (14:00)
[2017-08-06] MEDS ORDERED: SODIUM CHLORIDE 0.9% FLUSH 10 ML FLUSH IVF PRN (14:00)
[2017-08-06 14:18] LABS: AUTOMATED NEUTROPHIL # 14.9 TH/MM3 (1.8-7.7); BASOPHIL # 0.1 TH/MM3 (0-0.2); BASOPHIL % 0.9 % (0.0-2.0); EOSINOPHIL % 0.1 % (0.0-4.0); HEMATOCRIT 44.4 % (39.0-51.0); HEMOGLOBIN 14.9 GM/DL (13.0-17.0); LYMPH % 6.9 % (9.0-44.0); LYMPHOCYTE # 1.1 TH/MM3 (1.0-4.8); MEAN CELL VOLUME 87.1 FL (80.0-100.0); MEAN CORPUSCULAR HEMOGLOBIN 29.2 PG (27.0-34.0); MEAN CORPUSCULAR HGB CONC 33.5 % (32.0-36.0); MEAN PLATELET VOLUME 7.8 FL (7.0-11.0); MONO % 1.4 % (0.0-8.0); MONOCYTE # 0.2 TH/MM3 (0-0.9); NEUT % 90.7 % (16.0-70.0); PLATELET COUNT 274 TH/MM3 (150-450); RED CELL DISTRIBUTION WIDTH 12.5 % (11.6-17.2); WHITE BLOOD COUNT 16.3 TH/MM3 (4.0-11.0)
[2017-08-06 14:26] LABS: CHLORIDE 99 MEQ/L (98-107); SODIUM (NA) 138 MEQ/L (136-145)
[2017-08-06 14:30] LABS: ALBUMIN 4.4 GM/DL (3.4-5.0); BICARBONATE 28.6 MEQ/L (21.0-32.0); BLOOD UREA NITROGEN 12 MG/DL (7-18); CALCIUM 8.9 MG/DL (8.5-10.1); GLUCOSE,RANDOM 137 MG/DL (74-106); LIPASE 37 U/L (73-393)
[2017-08-06] MEDS ORDERED: HYDROmorphone HCL PF 2 MG/ML VIAL IV PUSH ONE (14:30)
[2017-08-06] MEDS ORDERED: FAMOTIDINE 20 MG/2 ML VIAL IV PUSH SCH (14:30)
[2017-08-06 14:33] LABS: ALT (GPT) 29 U/L (12-78); AST (GOT) 22 U/L (15-37); CREATININE 0.91 MG/DL (0.60-1.30); GLOMERULAR FILTRATION RATE 101 ML/MIN (>89)
[2017-08-06 14:35] LABS: TOTAL BILIRUBIN ADULT 0.1 MG/DL (0.2-1.0); TOTAL PROTEIN 8.4 GM/DL (6.4-8.2)
[2017-08-06 14:36] LABS: ALKALINE PHOSPHATASE 91 U/L (45-117)
--- NOTE | 2017-08-06 14:53 | PD ---
HPI . Abdominal pain and vomiting Chief Complaint: GI Complaint Time Seen by Provider: 13:45 Travel History International Travel<30 days: No Contact w/Intl Traveler<30days: No Traveled to known affect area: No History of Present Illness HPI This patient presents with epigastric abdominal pain associated with vomiting. Onset of both symptoms was at 5 AM. No diarrhea. No fever. Multiple previous similar episodes secondary to pancreatitis. Patient reports a chronic medical history of cystic fibrosis and chronic pancreatitis. He states that he is usually treated for this in the emergency department with IV fluids, Protonix, Zofran and Dilaudid. Pain is rated 10/10 with no modifying factors. PFSH Past Medical History Hx Anticoagulant Therapy: No Arthritis: No Asthma: No Autoimmune Disease: No Anxiety: No Depression: No Cancer: No Cardiovascular Problems: No COPD: No Cerebrovascular Accident: No Cystic Fibrosis: Yes Diabetes: Yes Patient Takes Glucophage: No Diminished Hearing: No Endocrine: No Gastrointestinal Disorders: Yes GERD: Yes Genitourinary: No Headaches: No Hiatal Hernia: No Immune Disorder: No Implanted Vascular Access Dvce: No Musculoskeletal: No Neurologic: No Psychiatric: No Reproductive: Yes (yes due to Cystic Fibrosis) Respiratory: Yes (Cystic Fibrosis) Immunizations Current: Yes Migraines: No Pancreatitis: Yes Seizures: No Sleep Apnea: No Ulcer: No ?: Not Past Surgical History Abdominal Surgery: No AICD: No Arteriovenous Shunt: No Cardiac Surgery: No Cholecystectomy: Yes Ear Surgery: No Endocrine Surgery: No Eye Surgery: No Genitourinary Surgery: No Gynecologic Surgery: No Insulin Pump: No Joint Replacement: No Neurologic Surgery: Yes (CILIAC NERVE BLOCK) Oral Surgery: No Thoracic Surgery: No Other Surgery: No Social History Alcohol Use: No Tobacco Use: No Substance Use: No Allergies-Medications (Allergen,Severity, Reaction): Coded Allergies: No Known Allergies (Unverified Adverse Reaction, Unknown, 08/06/17) Reported Meds & Prescriptions Reported Meds & Active Scripts Active Percocet (Oxycodone-Acetaminophen) 5-325 mg Tab 1 Tab PO Q6H PRN Zofran Odt (Ondansetron Odt) 4 Mg Tab 4 Mg SL Q6HR PRN Zofran Odt (Ondansetron Odt) 8 Mg Tab 8 Mg SL Q8HR Reported Gabapentin 300 Mg Cap 300 Mg PO TID Fentanyl Patch 72 HR (Fentanyl) 12 Mcg/Hr Patch 1 Patch T-DERMAL Q72H Remove old patch when new one placed. Creon (Amylase/Lipase/Protease) 24,000-76,000-120,000 Units Cap 1 Cap PO TIDPC Lansoprazole 30 Mg Capdr 30 Mg PO DAILY Albuterol Neb (Albuterol Sulfate) 2.5 Mg/0.5 Ml Neb 2.5 Mg NEB Q6HR NEB PRN Note: The Albuterol Sulfate Inhalation Solution is concentrated and must be diluted. Read complete instructions carefully before using. Aquadeks (Multiple Vitamins W/ Minerals) 1 Chw Chw Fluticasone Nasal [place] 50 Mcg/Act Naspr 50 Mcg EACH NARE BID 50 mcg/spray Famotidine 20 Mg Tab 20 Mg PO BID Diazepam 2 Mg Tab 2 Mg PO BID PRN Ventolin Hfa 18 GM Inh (Albuterol Sulfate) 90 Mcg/Act Aer 1 Puff INH Q4H PRN Protonix (Pantoprazole Sodium) 40 Mg Tab 40 Mg PO DAILY Magnesium 250 Mg Tab 1 Tab PO DAILY Vitamin D3 (Cholecalciferol) 1,000 Unit Tab 1,000 Units PO DAILY Review of Systems Except as stated in HPI: all other systems reviewed are Neg General / Constitutional: No: Fever, Chills Gastrointestinal: Positive: Nausea, Vomiting, Abdominal Pain, No: Diarrhea Genitourinary: No: Urgency, Frequency, Dysuria Physical Exam Narrative Vital Signs Date Time Temp Pulse Resp B/P (MAP) Pulse Ox O2 Delivery O2 Flow Rate FiO2 08/06/17 13:40 97.8 92 18 142/89 (106) 96 GENERAL: Active emesis on arrival to the ED. SKIN: warm/dry. Good color and turgor. HEAD: Normocephalic. Atraumatic. EYES: Pupils equal and round. No scleral icterus. No injection or drainage. ENT: No nasal bleeding or discharge. Mucous membranes pink and moist. NECK: Trachea midline. Full range of motion without pain.. CARDIOVASCULAR: Regular rate and rhythm. He is not tachycardic. RESPIRATORY: No accessory muscle use. Clear to auscultation. Breath sounds equal bilaterally. GASTROINTESTINAL: Abdomen soft. Epigastric tenderness. No guarding or rebound. Bowel sounds present. Nondistended. MUSCULOSKELETAL: No obvious deformities. NEUROLOGICAL: Awake and alert. No obvious cranial nerve deficits. Motor grossly within normal limits. Normal speech. PSYCHIATRIC: Appropriate mood and affect; insight and judgment normal. Data Data Last Documented VS Vital Signs Date Time Temp Pulse Resp B/P (MAP) Pulse Ox O2 Delivery O2 Flow Rate FiO2 08/06/17 13:40 97.8 92 18 142/89 (106) 96 Orders Orders Iv Access Insert/Monitor (08/06/17 13:46) Sodium Chlor 0.9% 1000 Ml Inj (Ns 1000 M (08/06/17 13:46) Sodium Chloride 0.9% Flush (Ns Flush) (08/06/17 14:00) Diphenhydramine Inj (Benadryl Inj) (08/06/17 14:00) Prochlorperazine Inj (Compazine Inj) (08/06/17 14:00) Complete Blood Count With Diff (08/06/17 13:47) Comprehensive Metabolic Panel (08/06/17 13:47) Lipase (08/06/17 13:47) Famotidine Inj (Pepcid Inj) (08/06/17 14:30) Hydromorphone Pf Inj (Dilaudid Pf Inj) (08/06/17 14:30) Labs Laboratory Tests Test 08/06/17 14:00 White Blood Count 16.3 TH/MM3 Red Blood Count 5.10 MIL/MM3 Hemoglobin 14.9 GM/DL Hematocrit 44.4 % Mean Corpuscular Volume 87.1 FL Mean Corpuscular Hemoglobin 29.2 PG Mean Corpuscular Hemoglobin Concent 33.5 % Red Cell Distribution Width 12.5 % Platelet Count 274 TH/MM3 Mean Platelet Volume 7.8 FL Neutrophils (%) (Auto) 90.7 % Lymphocytes (%) (Auto) 6.9 % Monocytes (%) (Auto) 1.4 % Eosinophils (%) (Auto) 0.1 % Basophils (%) (Auto) 0.9 % Neutrophils # (Auto) 14.9 TH/MM3 Lymphocytes # (Auto) 1.1 TH/MM3 Monocytes # (Auto) 0.2 TH/MM3 Eosinophils # (Auto) 0.0 TH/MM3 Basophils # (Auto) 0.1 TH/MM3 CBC Comment DIFF FINAL Differential Comment Blood Urea Nitrogen 12 MG/DL Creatinine 0.91 MG/DL Random Glucose 137 MG/DL Total Protein 8.4 GM/DL Albumin 4.4 GM/DL Calcium Level 8.9 MG/DL Alkaline Phosphatase 91 U/L Aspartate Amino Transf (AST/SGOT) 22 U/L Alanine Aminotransferase (ALT/SGPT) 29 U/L Total Bilirubin 0.1 MG/DL Sodium Level 138 MEQ/L Potassium Level 4.1 MEQ/L Chloride Level 99 MEQ/L Carbon Dioxide Level 28.6 MEQ/L Anion Gap 10 MEQ/L Estimat Glomerular Filtration Rate 101 ML/MIN Lipase 37 U/L MDM Medical Decision Making Medical Screen Exam Complete: Yes Emergency Medical Condition: Yes Medical Record Reviewed: Yes (patient was last seen here on 06/13 for the same complaint. He was treated in the department with a couple of liters of fluid. He was initially given Zofran, Protonix and Dilaudid. Emesis recurred and was treated with seen and Benadryl. 23 hour observation was offered but declined.) Differential Diagnosis Differential diagnosis includes but is not limited to viral gastritis, food poisoning, pancreatitis, pneumonia, hepatitis, acute coronary syndrome, Narrative Course Patient presents with acute epigastric pain associated with nausea and vomiting. He reports a history of pancreatitis. An IV was started and he was given a liter of IV fluid. He was also given IV Compazine will and IV Dilaudid. CBC & BMP Diagram 08/06/17 14:00 Total Protein 8.4 H, Albumin 4.4, Calcium Level 8.9, Alkaline Phosphatase 91, Aspartate Amino Transf (AST/SGOT) 22, Alanine Aminotransferase (ALT/SGPT) 29, Total Bilirubin 0.1 L lipase 37 2:52 PM No further emesis since being medicated. 3:30 PM The patient continues to rest comfortably with no further emesis. He'll be discharged home. Diagnosis Primary Impression: Acute abdominal pain Additional Impression: Nausea and vomiting Qualified Codes: R11.14 - Bilious vomiting Patient Instructions: Acute Nausea and Vomiting (DC), Epigastric Pain (ED), General Instructions, Narcotic given in the ED Med/Other Pt SpecificInfo: Prescription(s) given Scripts Promethazine (Phenergan) 25 Mg Tablet 25 MG PO Q6H Y for NAUSEA OR VOMITING, #12 TAB 0 Refills Prov: Tammy Rowley MD 08/06/17 Disposition: 01 DISCHARGE HOME Condition: Stable Tammy Rowley MD Aug 06, 2017 14:53
[2017-08-06] MEDS ORDERED: PROM25TA10 PO (15:30)
[2017-08-06 15:46] VITALS: BP 138/85
== END 2017-08-06 16:14 | disposition home or self-care (01) ==
LOC: PHED 13:31
DX: R10.13 Epigastric pain (principal); R11.2 Nausea with vomiting, unspecified; N30.10 Interstitial cystitis (chronic) without hematuria; E11.9 Type 2 diabetes mellitus without complications; K21.9 Gastro-esophageal reflux disease without esophagitis; Z87.19 Personal history of other diseases of the digestive system; Z79.899 Other long term (current) drug therapy; Z79.52 Long term (current) use of systemic steroids
CPT/HCPCS: 80053; 83690; 85025; 96361; 96374; 96375; 99283; J0780; J1170; J1200; J7030

== ENCOUNTER 2017-10-16 11:44 | Emergency (ER) | payer MEDICAID, MEDICARE ==
[~2017-10-16] VITALS: Ht 175.3 cm; Wt 66.2 kg
[~2017-10-16 11:44] MED LIST changes: -CARA1SUS3 PO; -OXYC-392 PO; -ZANT150T2 PO
[2017-10-16 12:02] VITALS: BP 144/98; PULSE 81; RESP 16; TEMP 96.6; O2SAT 96
[2017-10-16 13:25] VITALS: O2SAT 97
[2017-10-16] MEDS ORDERED: SODIUM CHLOR 0.9% 1000 ML INJ 1,000 ML IV SCH ×2 (13:39→15:47)
--- NOTE | 2017-10-16 13:39 | PD ---
HPI Chief Complaint: Abdominal Pain Time Seen by Provider: 13:36 Travel History International Travel<30 days: No Contact w/Intl Traveler<30days: No Traveled to known affect area: No History of Present Illness HPI Patient comes in complaining of epigastric area pain, nonradiating, rated 8-9 out of 10, associated with nausea vomiting. Patient states this is very similar to his pancreatitis flareups. And asked if he was going to receive his usual regimen of Zofran, Protonix and Dilaudid. Patient states that he has a cystic fibrosis doctor in [place] that he follows up with. Patient has no alleviating or aggravating factors. Patient denies any associated factors such as fever, rash, chest pain, headache, neck stiffness. No known drug allergy Past medical history significant for cystic fibrosis, pancreatitis, cholecystectomy, GERD, diabetes PFSH Past Medical History Hx Anticoagulant Therapy: No Arthritis: No Asthma: No Autoimmune Disease: No Anxiety: No Depression: No Cancer: No Cardiovascular Problems: No COPD: No Cerebrovascular Accident: No Cystic Fibrosis: Yes Diabetes: Yes Diminished Hearing: No Endocrine: No Gastrointestinal Disorders: Yes GERD: Yes Genitourinary: No Headaches: No Hiatal Hernia: No Immune Disorder: No Implanted Vascular Access Dvce: No Musculoskeletal: No Neurologic: No Psychiatric: No Reproductive: Yes (yes due to Cystic Fibrosis) Respiratory: Yes (Cystic Fibrosis) Immunizations Current: Yes Migraines: No Pancreatitis: Yes Seizures: No Sleep Apnea: No Ulcer: No Past Surgical History Abdominal Surgery: No AICD: No Arteriovenous Shunt: No Cardiac Surgery: No Cholecystectomy: Yes Ear Surgery: No Endocrine Surgery: No Eye Surgery: No Genitourinary Surgery: No Gynecologic Surgery: No Insulin Pump: No Joint Replacement: No Neurologic Surgery: Yes (CILIAC NERVE BLOCK) Oral Surgery: No Thoracic Surgery: No Other Surgery: No Social History Alcohol Use: No Tobacco Use: No Substance Use: No Allergies-Medications (Allergen,Severity, Reaction): Coded Allergies: No Known Allergies (Unverified Adverse Reaction, Unknown, 10/16/17) Reported Meds & Prescriptions Reported Meds & Active Scripts Active Bentyl (Dicyclomine HCl) 10 Mg Cap 10 Mg PO QID 5 Days Carafate (Sucralfate) 1 Gram Tab 1 Gm PO TID On empty stomach Phenergan (Promethazine HCl) 25 Mg Tablet 25 Mg PO Q6H PRN Percocet (Oxycodone-Acetaminophen) 5-325 mg Tab 1 Tab PO Q6H PRN Zofran Odt (Ondansetron Odt) 4 Mg Tab 4 Mg SL Q6HR PRN Zofran Odt (Ondansetron Odt) 8 Mg Tab 8 Mg SL Q8HR Reported Gabapentin 300 Mg Cap 300 Mg PO TID Fentanyl Patch 72 HR (Fentanyl) 12 Mcg/Hr Patch 1 Patch T-DERMAL Q72H Remove old patch when new one placed. Creon (Amylase/Lipase/Protease) 24,000-76,000-120,000 Units Cap 1 Cap PO TIDPC Lansoprazole 30 Mg Capdr 30 Mg PO DAILY Albuterol Neb (Albuterol Sulfate) 2.5 Mg/0.5 Ml Neb 2.5 Mg NEB Q6HR NEB PRN Note: The Albuterol Sulfate Inhalation Solution is concentrated and must be diluted. Read complete instructions carefully before using. Aquadeks (Multiple Vitamins W/ Minerals) 1 Chw Chw Fluticasone Nasal [place] 50 Mcg/Act Naspr 50 Mcg EACH NARE BID 50 mcg/spray Famotidine 20 Mg Tab 20 Mg PO BID Diazepam 2 Mg Tab 2 Mg PO BID PRN Ventolin Hfa 18 GM Inh (Albuterol Sulfate) 90 Mcg/Act Aer 1 Puff INH Q4H PRN Protonix (Pantoprazole Sodium) 40 Mg Tab 40 Mg PO DAILY Magnesium 250 Mg Tab 1 Tab PO DAILY Vitamin D3 (Cholecalciferol) 1,000 Unit Tab 1,000 Units PO DAILY Review of Systems General / Constitutional: No: Fever Eyes: No: Visual changes HENT: No: Headaches Cardiovascular: No: Chest Pain or Discomfort Respiratory: No: Shortness of Breath Gastrointestinal: Positive: Nausea, Vomiting, Abdominal Pain Genitourinary: No: Dysuria Musculoskeletal: No: Pain Skin: No Rash Neurologic: No: Weakness Psychiatric: No: Depression Endocrine: No: Polydipsia Hematologic/Lymphatic: No: Easy Bruising Physical Exam Narrative GENERAL: SKIN: Warm and dry. HEAD: Atraumatic. Normocephalic. EYES: Pupils equal and round. No scleral icterus. No injection or drainage. ENT: No nasal bleeding or discharge. Mucous membranes pink and moist. NECK: Trachea midline. No JVD. CARDIOVASCULAR: Regular rate and rhythm. RESPIRATORY: No accessory muscle use. Clear to auscultation. Breath sounds equal bilaterally. GASTROINTESTINAL: Abdomen soft, mild epigastric tenderness to palpation , nondistended. MUSCULOSKELETAL: Extremities without clubbing, cyanosis, or edema. No obvious deformities. NEUROLOGICAL: Awake and alert. No obvious cranial nerve deficits. Motor grossly within normal limits. Five out of 5 muscle strength in the arms and legs. Normal speech. PSYCHIATRIC: Appropriate mood and affect; insight and judgment normal. Data Data Last Documented VS Vital Signs Date Time Temp Pulse Resp B/P (MAP) Pulse Ox O2 Delivery O2 Flow Rate FiO2 10/16/17 13:25 97 Room Air 10/16/17 12:02 96.6 81 16 144/98 (113) Orders Orders Urinalysis - C+S If Indicated (10/16/17 12:06) Complete Blood Count With Diff (10/16/17 13:39) Comprehensive Metabolic Panel (10/16/17 13:39) Lipase (10/16/17 13:39) Prothrombin Time / Inr (Pt) (10/16/17 13:39) Act Partial Throm Time (Ptt) (10/16/17 13:39) Abdomen, Flat & Upright (10/16/17 ) Iv Access Insert/Monitor (10/16/17 13:39) Ecg Monitoring (10/16/17 13:39) Oximetry (10/16/17 13:39) NPO (10/16/17 13:39) Morphine Inj (Morphine Inj) (10/16/17 13:45) Ondansetron Inj (Zofran Inj) (10/16/17 13:45) Sodium Chlor 0.9% 1000 Ml Inj (Ns 1000 M (10/16/17 13:39) Sodium Chloride 0.9% Flush (Ns Flush) (10/16/17 13:45) Morphine Inj (Morphine Inj) (10/16/17 14:45) Metoclopramide Inj (Reglan Inj) (10/16/17 15:15) Promethazine Inj (Phenergan Inj) (10/16/17 15:15) Ondansetron Inj (Zofran Inj) (10/16/17 15:15) Al-Mag Hy-Si 40-40-4 Mg/Ml Liq (Mag-Al P (10/16/17 15:30) Lidocaine 2% Viscous (Xylocaine 2% Visco (10/16/17 15:30) Sodium Chlor 0.9% 1000 Ml Inj (Ns 1000 M (10/16/17 15:47) Pantoprazole Inj (Protonix Inj) (10/16/17 17:45) Labs Laboratory Tests Test 10/16/17 13:45 10/16/17 14:40 White Blood Count 19.1 TH/MM3 Red Blood Count 5.27 MIL/MM3 Hemoglobin 15.6 GM/DL Hematocrit 45.2 % Mean Corpuscular Volume 85.7 FL Mean Corpuscular Hemoglobin 29.7 PG Mean Corpuscular Hemoglobin Concent 34.6 % Red Cell Distribution Width 12.3 % Platelet Count 361 TH/MM3 Mean Platelet Volume 7.9 FL Neutrophils (%) (Auto) 86.2 % Lymphocytes (%) (Auto) 7.8 % Monocytes (%) (Auto) 1.9 % Eosinophils (%) (Auto) 0.1 % Basophils (%) (Auto) 4.0 % Neutrophils # (Auto) 16.4 TH/MM3 Lymphocytes # (Auto) 1.5 TH/MM3 Monocytes # (Auto) 0.4 TH/MM3 Eosinophils # (Auto) 0.0 TH/MM3 Basophils # (Auto) 0.8 TH/MM3 CBC Comment AUTO DIFF Differential Total Cells Counted 100 Neutrophils % (Manual) 88 % Lymphocytes % 10 % Monocytes % 1 % Eosinophils % 1 % Neutrophils # (Manual) 16.8 TH/MM3 Differential Comment FINAL DIFF MANUAL Platelet Estimate NORMAL Platelet Morphology Comment NORMAL Red Cell Morphology Comment NORMAL Prothrombin Time 11.0 SEC Prothromb Time International Ratio 1.1 RATIO Activated Partial Thromboplast Time 24.5 SEC Blood Urea Nitrogen 13 MG/DL Creatinine 0.95 MG/DL Random Glucose 138 MG/DL Total Protein 7.8 GM/DL Albumin 4.1 GM/DL Calcium Level 9.5 MG/DL Alkaline Phosphatase 93 U/L Aspartate Amino Transf (AST/SGOT) 16 U/L Alanine Aminotransferase (ALT/SGPT) 19 U/L Total Bilirubin 0.2 MG/DL Sodium Level 138 MEQ/L Potassium Level 4.1 MEQ/L Chloride Level 105 MEQ/L Carbon Dioxide Level 23.3 MEQ/L Anion Gap 10 MEQ/L Estimat Glomerular Filtration Rate 95 ML/MIN Lipase 30 U/L MDM Medical Decision Making Medical Screen Exam Complete: Yes Emergency Medical Condition: Yes Medical Record Reviewed: Yes Differential Diagnosis Gastroenteritis versus hepatitis versus pancreatitis Narrative Course I commented that he will be treated with morphine and Zofran with IV fluids and should there be no pancreatitis he may be added some Protonix. I explained that Protonix is in general use for ulcer disease, bleeding ulcers, and if this is the case then he will receive that treatment. I also stated that Dilaudid is a very strong narcotic and that it is not my practice to begin with Dilaudid as pain management acutely in the set up of the ER, I will be starting with morphine. And that repeated doses will be given primarily based on objective data such as lipase level and LFTs levels.... Either the patient nor the girlfriend are very happy with this process, they are both angry and does not understand why the time is being wasted by not giving him the Protonix, Zofran, and Dilaudid combination that works for him. I simply reinstated what I mentioned before. At the time when a updated them of his findings below: Upon review of the chart a CAT scan of the abdomen was performed on March 2017 , the conclusion by the radiologist was diffuse fatty changes to the pancreas, mildly diffuse fatty infiltration of the liver, and status post cholecystectomy. Due to these findings decision was made not to repeat CT since the patient is here with the same complaints Coagulation profile is within normal limits CBC shows leukocytosis, with neutrophilia of 86%, no anemia, and normal platelet count. Slightly due to reactive leukocytosis Abdominal x-rays is negative for any free air, signs of small bowel obstruction , or ileus. Complete metabolic profile shows normal electrolytes, normal kidney functions, normal liver functions, normal bilirubin and normal alk phos and normal lipase. The patient not worse may have some gastritis, but he will be made aware that he will not receive any further narcotics as none are indicated at this point. Patient will be discharged with Carafate, patient already has prescription for Prevacid. And once all information was shared with patient and he was became aware that he would no longer receive narcotics he made me aware that he no longer has narcotic medication at home because the month of September only had 28 days in the left of short. At which time I made him aware that this may be secondary to withdrawal rather than any other medical condition. I made him and his partner aware that he will be discharged after he recEIVES Protonix IV Diagnosis Primary Impression: Dyspeptic syndrome versus opiate withdrawal Patient Instructions: Diet for Stomach Ulcers and Gastritis (ED), Gastritis (ED ), General Instructions Scripts Ondansetron Odt (Zofran Odt) 8 Mg Tab 8 MG SL Q8H Y for NAUSEA OR VOMITING, #20 TAB 0 Refills Prov: Rashard Brian MD 10/16/17 Dicyclomine (Bentyl) 10 Mg Cap 10 MG PO QID for Bowel Management for 5 Days, #15 CAP 0 Refills Prov: Rashard Brian MD 10/16/17 Sucralfate (Carafate) 1 Gram Tab 1 GM PO TID for Ulcer Prevention, #90 TAB 0 Refills On empty stomach Prov: Rashard Brian MD 10/16/17 Disposition: 01 DISCHARGE HOME Condition: Stable Rashard Brian MD Oct 16, 2017 13:38
[2017-10-16] MEDS ORDERED: SODIUM CHLORIDE 0.9% FLUSH 10 ML FLUSH IV FLUSH PRN (13:45)
[2017-10-16] MEDS ORDERED: MORPHINE SULFATE 4 MG/ML INJ IV PUSH ONE ×2 (13:45→14:45)
[2017-10-16] MEDS ORDERED: ONDANSETRON HCL 4 MG/2 ML VIAL IVP ONE (13:45)
[2017-10-16 14:08] LABS: AUTOMATED NEUTROPHIL # 16.4 TH/MM3 (1.8-7.7); BASOPHIL # 0.8 TH/MM3 (0-0.2); EOSINOPHIL % 0.1 % (0.0-4.0); HEMATOCRIT 45.2 % (39.0-51.0); HEMOGLOBIN 15.6 GM/DL (13.0-17.0); LYMPH % 7.8 % (9.0-44.0); LYMPHOCYTE # 1.5 TH/MM3 (1.0-4.8); MEAN CELL VOLUME 85.7 FL (80.0-100.0); MEAN CORPUSCULAR HEMOGLOBIN 29.7 PG (27.0-34.0); MEAN CORPUSCULAR HGB CONC 34.6 % (32.0-36.0); MEAN PLATELET VOLUME 7.9 FL (7.0-11.0); MONO % 1.9 % (0.0-8.0); MONOCYTE # 0.4 TH/MM3 (0-0.9); NEUT % 86.2 % (16.0-70.0); PLATELET COUNT 361 TH/MM3 (150-450); RED BLOOD COUNT 5.27 MIL/MM3 (4.50-5.90); RED CELL DISTRIBUTION WIDTH 12.3 % (11.6-17.2); WHITE BLOOD COUNT 19.1 TH/MM3 (4.0-11.0)
[2017-10-16 15:03] LABS: INTERNATIONAL NORMALIZED RATIO 1.1 RATIO
[2017-10-16] MEDS ORDERED: METOCLOPRAMIDE HCL 10 MG/2 ML VIAL IV PUSH ONE (15:15)
[2017-10-16] MEDS ORDERED: PROMETHAZINE INJ 25 MG/ML VIAL IM ONE (15:15)
[2017-10-16] MEDS ORDERED: ONDANSETRON HCL 4 MG/2 ML VIAL IV PUSH ONE (15:15)
[2017-10-16 15:27] LABS: LYMPHOCYTES 10 % (9-44); MONOCYTES 1 % (0-8); NEUTROPHIL # MANUAL DIFF 16.8 TH/MM3 (1.8-7.7); POLYS (SEG NEUTROPHILS) 88 % (16-70)
[2017-10-16] MEDS ORDERED: LIDOCAINE VISCOUS 2% SOLN 15 ML UDC PO ONE (15:30)
[2017-10-16] MEDS ORDERED: ALUMINUM/MAGNESIUM/SIMETH 30 ML CUP PO ONE (15:30)
--- NOTE | 2017-10-16 15:34 | RADRPT ---
EXAM DATE/TIME: 10/16/2017 15:16 [facility] COMPARISON: ABDOMEN FLAT & UPRIGHT, May 18, 2017, 2:37. INDICATIONS : Abdomen pain, vomiting MEDICAL HISTORY : Pancreatitis. cystic fibrosis SURGICAL HISTORY : Cholecystectomy. ENCOUNTER: Initial ACUITY: 2 days PAIN SCORE: 10/10 LOCATION: Bilateral abdomen FINDINGS: Supine and upright views of the abdomen were performed. The abdominal bowel gas pattern is normal. No air fluid levels are seen. No abnormal masses, calcifications, or organomegaly is seen. The visu alized lower lungs are clear. No evidence of free intraperitoneal gas. The osseous structures are u nremarkable. Surgical clips right upper quadrant. CONCLUSION: No acute disease. Kit Dockery MD on October 16, 2017 at 15:31 Board Certified Radiologist. This report was verified electronically.
[2017-10-16 17:07] LABS: CHLORIDE 105 MEQ/L (98-107); SODIUM (NA) 138 MEQ/L (136-145)
[2017-10-16 17:10] LABS: ALBUMIN 4.1 GM/DL (3.4-5.0); BICARBONATE 23.3 MEQ/L (21.0-32.0); CALCIUM 9.5 MG/DL (8.5-10.1)
[2017-10-16 17:11] LABS: BLOOD UREA NITROGEN 13 MG/DL (7-18); GLUCOSE,RANDOM 138 MG/DL (74-106)
[2017-10-16 17:13] LABS: ALT (GPT) 19 U/L (12-78); AST (GOT) 16 U/L (15-37); CREATININE 0.95 MG/DL (0.60-1.30); GLOMERULAR FILTRATION RATE 95 ML/MIN (>89)
[2017-10-16 17:15] LABS: TOTAL BILIRUBIN ADULT 0.2 MG/DL (0.2-1.0); TOTAL PROTEIN 7.8 GM/DL (6.4-8.2)
[2017-10-16 17:16] LABS: ALKALINE PHOSPHATASE 93 U/L (45-117)
[2017-10-16] MEDS ORDERED: DICY10 PO (17:22)
[2017-10-16] MEDS ORDERED: CARA1TAB6 PO (17:22)
[2017-10-16] MEDS ORDERED: ZOFR8TAB4 SL (17:36)
[2017-10-16] MEDS ORDERED: PANTOPRAZOLE SODIUM 40 MG VIAL IV PUSH ONE (17:45)
[2017-10-16 18:10] VITALS: BP 137/81
== END 2017-10-16 18:10 | disposition home or self-care (01) ==
LOC: PHED 11:44
DX: K30 Functional dyspepsia (principal); E84.9 Cystic fibrosis, unspecified; E11.9 Type 2 diabetes mellitus without complications; Z79.891 Long term (current) use of opiate analgesic
CPT/HCPCS: 74019; 80053; 83690; 85007; 85027; 85610; 85730; 96361; 96372; 96374; 96375; 96376; 99284; C9113; J2270; J2405; J2550; J2765; J7030